=== PATIENT | female | born 1960 | race Caucasian/White ===

== ENCOUNTER 2020-04-17 08:07 | Emergency (ER) | payer OTHER ==
--- NOTE | 2020-04-17 09:44 | RAD REPORT ---
EXAM DESCRIPTION: RAD - Wrist Right 3 View - 04/17/2020 9:28 am CLINICAL HISTORY: Right wrist pain status post injury FINDINGS: The bones are osteoporotic. No fracture or dislocation is seen. If the patient continues to have symptoms to suggest an occult fr acture then a followup plain film series in 7 days would be recommended.
--- NOTE | 2020-04-17 10:27 | EDPHYS ---
Physician Documentation [facility] Name: Cassandra Houser Age: 59 yrs Sex: Female : 1960 Arrival Date: 04/17/2020 Time: 08:09 Bed 12 Private MD: ED Physician Nilesh Stewart HPI: 04/17 10:21 This 59 yrs old Female presents to ER via Ambulatory with complaints of Fall cp Injury. 10:21 Details of fall: The patient fell from an upright position, while standing. Onset: The cp symptoms/episode began/occurred last night. Associated injuries: The patient sustained right wrist. Historical: - Allergies: 08: No Known Allergies; ss - PMHx: 08:31 Diabetes - NIDDM; Graves; ss - Immunization history:: Adult Immunizations up to date. - Social history:: Smoking status: Patient denies any tobacco usage or history of. ROS: 10:22 Constitutional: Negative for body aches, chills, fever. cp 10:22 MS/extremity: Positive for pain, swelling, tenderness, of the right wrist, Negative for decreased range of motion, deformity, paresthesias. 10:22 Skin: Negative for rash. 10:22 All other systems are negative. Exam: 10:23 Head/Face: Normocephalic, atraumatic. cp 10:23 Constitutional: The patient appears in no acute distress, alert, awake, non-toxic, well developed, well nourished. 10:23 Cardiovascular: Rate: normal. 10:23 Respiratory: the patient does not display signs of respiratory distress, Respirations: normal. 10:23 Musculoskeletal/extremity: Extremities: grossly normal except: noted in the right wrist: pain, tenderness, There is no evidence of decreased ROM, deformity, ROM: limited passive range of motion due to pain, in the right wrist, Perfusion: the extremity is normally perfused throughout, Sensation intact. Vital Signs: 08:29 BP 151 / 90; Pulse 69; Resp 15; Temp 98.0(TE); Pulse Ox 99% on R/A; Weight 81.65 kg; ss Height 5 ft. 9 in. (175.26 cm); Pain 5/10; 08:29 Body Mass Index 26.58 (81.65 kg, 175.26 cm) MDM: 10:24 Differential diagnosis: contusion, fracture, sprain, strain, dislocation. cp 10:25 Data reviewed: vital signs, nurses notes, radiologic studies, plain films. Test cp interpretation: by ED physician or midlevel provider: plain radiologic studies. Counseling: I had a detailed discussion with the patient and/or guardian regarding: the historical points, exam findings, and any diagnostic results supporting the discharge/admit diagnosis, radiology results, to return to the emergency department if symptoms worsen or persist or if there are any questions or concerns that arise at home. 10:26 Patient medically screened. cp 04/17 08:32 Order name: XRAY Wrist RIGHT 3 view; Complete Time: 10:22 ss 04/17 10:23 Order name: Splint - Wrist; Complete Time: 11:12 cp Administered Medications: 11:00 Drug: Ibuprofen 800 mg Route: PO; ss 11:11 Follow up: Response: Medication administered at discharge. 11:00 Drug: Tylenol #3 (300 mg-30 mg) 1 tablet Route: PO; ss 11:12 Follow up: Response: No adverse reaction; Medication administered at discharge. Disposition: 10:45 Chart complete. cp 17:39 Co-signature as Attending Physician, Nilesh Stewart MD. ma2 Disposition: 04/17/20 10:26 Discharged to Home. Impression: Pain in right wrist - from fall. - Condition is Stable. - Discharge Instructions: Wrist Pain. - Prescriptions for Naprosyn 500 mg Oral Tablet - take 1 tablet by ORAL route 2 times per day take with food; 20 tablet. - Medication Reconciliation Form, Thank You Letter, Antibiotic Education, Prescription Opioid Use form. - Follow up: Private Physician; When: 2 - 3 days; Reason: Worsening of condition. - Problem is new. - Symptoms have improved. Signatures: Dispatcher [employer] EDSarah Davison RN RN ss Enrique Pascal PA PA cp Alzahri, Mohammad, MD MD ma2 Corrections: (The following items were deleted from the chart) 11:13 10:26 04/17/2020 10:26 Discharged to Home. Impression: Pain in right wrist - from fall. ss Condition is Stable. Forms are Medication Reconciliation Form, Thank You Letter, Antibiotic Education, Prescription Opioid Use. Follow up: Private Physician; When: 2 - 3 days; Reason: Worsening of condition. Problem is new. Symptoms have improved. cp
--- NOTE | 2020-04-17 10:27 | ER ---
Nurse's Notes [facility] Name: Cassandra Houser Age: 59 yrs Sex: Female : 1960 Arrival Date: 04/17/2020 Time: 08:09 Bed 12 Private MD: Diagnosis: Pain in right wrist-from fall Presentation: 04/17 08:29 Chief complaint: Patient states: R wrist pain after falling on ice last night. ss Coronavirus screen: Client denies travel out of the [place] in the last 14 days. Ebola Screen: Patient denies exposure to infectious person. Patient denies travel to an Ebola-affected area in the 21 days before illness onset. Initial Sepsis Screen: Does the patient meet any 2 criteria? No. Patient's initial sepsis screen is negative. Does the patient have a suspected source of infection? No. Patient's initial sepsis screen is negative. Risk Assessment: Do you want to hurt yourself or someone else? Patient reports no desire to harm self or others. Onset of symptoms was April 16, 2020. 08:29 Method Of Arrival: Ambulatory 08:29 Acuity: GERRY 4 08:32 Note Patient is able to hold phone and text with affected wrist during triage. ss Historical: - Allergies: 08:31 No Known Allergies; ss - PMHx: 08:31 Diabetes - NIDDM; Graves; ss - Immunization history:: Adult Immunizations up to date. - Social history:: Smoking status: Patient denies any tobacco usage or history of. Screenin:15 Abuse screen: Denies threats or abuse. Denies injuries from another. Nutritional ss screening: No deficits noted. Tuberculosis screening: Never had TB. Fall Risk None identified. Assessment: 10:15 General: Appears in no apparent distress. comfortable, Behavior is calm, cooperative, ss Denies fever, feeling ill, fatigue, chills. Pain: Complains of pain in right wrist Pain currently is 5 out of 10 on a pain scale. Quality of pain is described as aching, tender, Is continuous. Neuro: Level of Consciousness is awake, alert, obeys commands, Oriented to person, place, time, situation, Metallurgical Tester are equal bilaterally Speech is normal, Facial symmetry appears normal. Cardiovascular: Capillary refill < 3 seconds is brisk in bilateral fingers Patient's skin is warm and dry. Cardiovascular: Pulses are palpable in right radial artery and left radial artery. Respiratory: Airway is patent Respiratory effort is even, unlabored, Respiratory pattern is regular, symmetrical. GI: No signs and/or symptoms were reported involving the gastrointestinal system. : No signs and/or symptoms were reported regarding the genitourinary system. EENT: No deficits noted. No signs and/or symptoms were reported regarding the EENT system. Derm: Skin is intact, is healthy with good turgor, Skin is dry, Skin is pink, warm \T\ dry. normal. Musculoskeletal: Range of motion: intact in all extremities, Swelling absent. Vital Signs: 08:29 BP 151 / 90; Pulse 69; Resp 15; Temp 98.0(TE); Pulse Ox 99% on R/A; Weight 81.65 kg; ss Height 5 ft. 9 in. (175.26 cm); Pain 5/10; 08:29 Body Mass Index 26.58 (81.65 kg, 175.26 cm) ss ED Course: 08:09 Patient arrived in ED. mr 08:30 Triage completed. ss 08:31 Arm band placed on right wrist. ss 09:28 XRAY Wrist RIGHT 3 view In Process Unspecified. EDMS 10:15 Patient has correct armband on for positive identification. Bed in low position. Call ss light in reach. 10:21 Enrique Pascal PA is PHCP. cp 10:21 Nilesh Stewart MD is Attending Physician. cp 10:54 Sarah Liz, JEYSON is Primary Nurse. ss 11:12 No provider procedures requiring assistance completed. Patient did not have IV access ss during this emergency room visit. Velcro wrist splint applied to right wrist. Administered Medications: 11:00 Drug: Ibuprofen 800 mg Route: PO; ss 11:11 Follow up: Response: Medication administered at discharge. ss 11:00 Drug: Tylenol #3 (300 mg-30 mg) 1 tablet Route: PO; ss 11:12 Follow up: Response: No adverse reaction; Medication administered at discharge. ss Outcome: 10:26 Discharge ordered by . cp 11:12 Discharged to home ambulatory. ss 11:12 Condition: good 11:12 Discharge instructions given to patient, Instructed on discharge instructions, follow up and referral plans. medication usage, Demonstrated understanding of instructions, follow-up care, medications, Prescriptions given X 1. 11:13 Patient left the ED. ss Signatures: Dispatcher [employer] Yamini Salazar Shelby, RN RN ss Naida, WILL Nunez PA cp
[2020-04-17] MEDS ORDERED: CODEINE 30MG/APAP 300MG TAB ONE (11:14)
[2020-04-17] MEDS ORDERED: IBUPROFEN 400 MG TAB ONE (11:15)
[2020-04-17 11:17] VITALS: BP 151/90; TEMP 98; O2SAT 99
== END 2020-04-17 11:13 | disposition home or self-care (01) ==
LOC: ER 08:07
DX: M25.531 Pain in right wrist (principal); W00.0XXA Fall on same level due to ice and snow, initial encounter; Y93.9 Activity, unspecified; Y92.9 Unspecified place or not applicable
CPT/HCPCS: 99284